=== PATIENT | female | born 1975 | race Caucasian/White ===

== ENCOUNTER → 2019-05-08 | Outpatient (CLI) | payer OTHER | LOC: M.RAD 10:21 | DX: R05 Cough (principal); J02.9 Acute pharyngitis, unspecified; R53.83 Other fatigue ==

== ENCOUNTER → 2019-05-17 | Outpatient (CLI) | payer OTHER | LOC: M.MRI 07:30 | DX: M41.86 Other forms of scoliosis, lumbar region (principal); M43.27 Fusion of spine, lumbosacral region; M51.26 Other intervertebral disc displacement, lumbar region; M48.061 Spinal stenosis, lumbar region without neurogenic claudication; M12.88 Other specific arthropathies, not elsewhere classified, other specified site ==

== ENCOUNTER → 2019-06-10 | Outpatient (CLI) | payer OTHER ==
[~2019-06-10] MED LIST: BUSPIRONE HCL15 MG PO; FLUOXETINE HCL20 M1 PO; HYDROCODON-ACE1 EA12 PO; LAMOTRIGINE100 MG PO; PREDNISONE 10 M10 MG PO; TIZANIDINE HCL4 M1 PO; ZOLPIDEM TARTRA10 MG PO
== END ==
LOC: M.PC 01:26
DX: M51.16 Intervertebral disc disorders with radiculopathy, lumbar region (principal); M47.26 Other spondylosis with radiculopathy, lumbar region; M48.061 Spinal stenosis, lumbar region without neurogenic claudication

== ENCOUNTER → 2019-07-01 | Outpatient (CLI) | payer OTHER | END | disposition home or self-care (01) | LOC: M.PC 06-26 08:30 | DX: M54.5 Low back pain (principal); M51.16 Intervertebral disc disorders with radiculopathy, lumbar region; M47.26 Other spondylosis with radiculopathy, lumbar region; M48.061 Spinal stenosis, lumbar region without neurogenic claudication; D64.9 Anemia, unspecified; F17.210 Nicotine dependence, cigarettes, uncomplicated; Z98.890 Other specified postprocedural states; Z79.899 Other long term (current) drug therapy; Z88.0 Allergy status to penicillin; Z88.8 Allergy status to other drugs, medicaments and biological substances; Z90.49 Acquired absence of other specified parts of digestive tract ==

== ENCOUNTER → 2019-07-15 | Outpatient (CLI) | payer OTHER | LOC: M.PC 01:31 | DX: M47.26 Other spondylosis with radiculopathy, lumbar region (principal); M48.061 Spinal stenosis, lumbar region without neurogenic claudication; M51.16 Intervertebral disc disorders with radiculopathy, lumbar region ==

== ENCOUNTER → 2019-08-19 | Outpatient (CLI) | payer OTHER ==
[~2019-08-19] MED LIST changes: +OXYCODONE HCL E10 MG PO
== END ==
LOC: M.MRI 11:13
DX: M51.24 Other intervertebral disc displacement, thoracic region (principal); M48.04 Spinal stenosis, thoracic region

== ENCOUNTER → 2019-08-21 | Outpatient (CLI) | payer OTHER | LOC: M.PC 03:39 | DX: M47.26 Other spondylosis with radiculopathy, lumbar region (principal); M51.16 Intervertebral disc disorders with radiculopathy, lumbar region; M48.061 Spinal stenosis, lumbar region without neurogenic claudication; Z98.1 Arthrodesis status ==

== ENCOUNTER → 2019-10-07 | Outpatient (CLI) | payer OTHER ==
[~2019-10-07] MED LIST changes: +OXYCODONE HCL10 MG PO; +ROXICODONE5 M2 PO
== END ==
LOC: M.PC 01:36
DX: M47.26 Other spondylosis with radiculopathy, lumbar region (principal); M51.36 Other intervertebral disc degeneration, lumbar region; M48.061 Spinal stenosis, lumbar region without neurogenic claudication; M79.604 Pain in right leg; M79.605 Pain in left leg; E88.2 Lipomatosis, not elsewhere classified